=== PATIENT | male | born 1950 | race Caucasian/White ===

== ENCOUNTER 2016-05-03 10:18 | Inpatient (IN) | payer OTHER ==
[~2016-05-03] VITALS: Ht 167.6 cm; Wt 122.4 kg
[~2016-05-03 10:18] MED LIST: ASPIRIN EC325 MG PO; BACTRIM,SEPT1 TABLET PO; CARDIZEM CD120 M1 PO; CLEOCIN300 MG PO; CLINDAMYCIN HC300 MG PO; ENDOCET 5-3251 EACH PO; GABAPENTIN300 MG PO; GEODON20 MG PO; GEODON80 MG PO; Geodon PO; K-DUR20 MEQ PO; KEFLEX500 MG PO; KLOR-CON M2020 MEQ PO; LASIX20 MG PO; LEXAPRO10 MG PO; MAXZIDE 37.5 M1 EACH PO; OMEPRAZOLE40 M1 PO; PT UNSURE OF MEDS; TRIAMTERENE-HC1 EAC1 PO; Zeasorb Antifungal Treatment,Mitrazol Powder TP
[2016-05-03 11:37] LABS: HEMATOCRIT 31.3 % (38.0-50.0); MCH 24.9 PG (29.0-34.0); MCHC 32.6 G/DL (30.0-36.0); MCV 76.3 FL (86-99); MEAN PLAT.VOLUME 9.8 uM^3 (9.0-12.4); PLATELET COUNT 271 K/uL (156-360); RBC DIS.WIDTH-CV 16.4 % (11.8-14.6); RBC DIS.WIDTH-SD 43.8 % (39-53); WHITE BLOOD COUNT 14.7 K/uL (4.1-10.2)
[2016-05-03 11:42] LABS: EOSINOPHIL (%) 0.3 % (0-5); IMMATURE GRANULOCYTE (%) 0.3 % (0.0-0.7); IMMATURE GRANULOCYTE COUNT 0.5 K/uL; LYMPHOCYTE COUNT 0.8 K/uL (1.0-2.8); MONOCYTE (%) 8.6 % (3-12); MONOCYTE COUNT 1.3 K/uL (0-0.8); NEUTROPHIL (%) 85.3 % (45-76); NEUTROPHIL COUNT 12.5 K/uL (1.8-6.4)
[2016-05-03 11:48] LABS: CHLORIDE 95 mEq/L (99-109); POTASSIUM 3.1 mEq/L (3.7-5.4); SODIUM 134 mEq/L (136-147)
[2016-05-03 11:49] LABS: GLUCOSE 125 mg/dL (70-99)
[2016-05-03 11:51] LABS: ANION GAP 13 MEQ/L (2-14)
[2016-05-03 11:53] LABS: GFR ESTIMATE (CALCULATED) > 59 mL/min/
[2016-05-03 11:54] LABS: UREA NITROGEN (BUN) 12 mg/dL (9-23)
[2016-05-03] MEDS ORDERED: K-DUR20 MEQ PO (15:26)
[2016-05-03] MEDS ORDERED: ASPIRIN325 MG PO (15:27)
[2016-05-03] MEDS ORDERED: CARDIZEM CD,CA120 MG PO (15:27)
[2016-05-03] MEDS ORDERED: LASIX40 MG PO (15:28)
[2016-05-03] MEDS ORDERED: TRAMADOL HCL50 MG PO (15:28)
[2016-05-03 17:19] LABS: TROP-I INTERPRETATION NEGATIVE; TROPONIN-I 0.01 ng/mL (0.0-0.30)
[2016-05-03 20:44] LABS: CHLORIDE 95 mEq/L (99-109); POTASSIUM 3.4 mEq/L (3.7-5.4); SODIUM 132 mEq/L (136-147)
[2016-05-03 20:45] LABS: GLUCOSE 128 mg/dL (70-99)
[2016-05-03 20:47] LABS: ANION GAP 9 MEQ/L (2-14)
[2016-05-03 20:49] LABS: GFR ESTIMATE (CALCULATED) > 59 mL/min/
[2016-05-03 20:50] LABS: UREA NITROGEN (BUN) 12 mg/dL (9-23)
[2016-05-03 21:00] VITALS: BP 152/81
[2016-05-04 00:23] VITALS: BP 110/54
[2016-05-04 07:08] LABS: HEMATOCRIT 26.8 % (38.0-50.0); MCH 24.6 PG (29.0-34.0); MCHC 32.1 G/DL (30.0-36.0); MCV 76.8 FL (86-99); MEAN PLAT.VOLUME 9.6 uM^3 (9.0-12.4); PLATELET COUNT 268 K/uL (156-360); RBC DIS.WIDTH-CV 16.4 % (11.8-14.6); RBC DIS.WIDTH-SD 45.5 % (39-53); RED BLOOD COUNT 3.49 M/uL (4.00-5.50); WHITE BLOOD COUNT 12.9 K/uL (4.1-10.2)
[2016-05-04 07:32] LABS: ANION GAP 9 MEQ/L (2-14); CHLORIDE 97 MEQ/L (99-109); GFR ESTIMATE (CALCULATED) > 59 mL/min/; GLUCOSE 96 mg/dL (70-99); POTASSIUM 3.5 MEQ/L (3.7-5.4); SAMPLE HEMOLYSIS CHECK 0; SAMPLE ICTERIC CHECK 0; SAMPLE LIPEMIA CHECK 0; SODIUM 133 MEQ/L (136-147); UREA NITROGEN (BUN) 11 mg/dL (9-23)
[2016-05-04 08:10] VITALS: BP 105/60
[2016-05-04 12:00] VITALS: BP 116/51
[2016-05-04 15:45] VITALS: BP 127/68
[2016-05-04 19:20] VITALS: BP 126/79
[2016-05-05] VITALS (8 sets, daily range): BP systolic 114–143; BP diastolic 62–88
[2016-05-05 07:17] LABS: HEMATOCRIT 25.6 % (38.0-50.0); MCH 24.3 PG (29.0-34.0); MCHC 31.6 G/DL (30.0-36.0); MCV 76.9 FL (86-99); MEAN PLAT.VOLUME 9.8 uM^3 (9.0-12.4); PLATELET COUNT 295 K/uL (156-360); RBC DIS.WIDTH-CV 16.5 % (11.8-14.6); RBC DIS.WIDTH-SD 46.1 % (39-53); RED BLOOD COUNT 3.33 M/uL (4.00-5.50)
[2016-05-05 07:19] LABS: WHITE BLOOD COUNT 7.6 K/uL (4.1-10.2)
[2016-05-05 07:24] LABS: ANION GAP 8 MEQ/L (2-14); CHLORIDE 100 MEQ/L (99-109); GFR ESTIMATE (CALCULATED) > 59 mL/min/; GLUCOSE 101 mg/dL (70-99); POTASSIUM 4.1 MEQ/L (3.7-5.4); SAMPLE HEMOLYSIS CHECK 0; SAMPLE ICTERIC CHECK 0; SAMPLE LIPEMIA CHECK 0; SODIUM 135 MEQ/L (136-147); UREA NITROGEN (BUN) 10 mg/dL (9-23)
[2016-05-06 03:47] VITALS: BP 138/77
[2016-05-06 08:16] VITALS: BP 137/65
[2016-05-06 11:34] VITALS: BP 137/65
[2016-05-06 16:48] VITALS: BP 147/74
[2016-05-06 19:26] VITALS: BP 130/77
[2016-05-06 22:32] VITALS: BP 115/56
[2016-05-07 04:51] VITALS: BP 129/86
[2016-05-07 06:24] LABS: EOSINOPHIL (%) 5.5 % (0-5); EOSINOPHIL COUNT 0.6 K/uL (0-0.3); HEMATOCRIT 27.2 % (38.0-50.0); IMMATURE GRANULOCYTE (%) 0.9 % (0.0-0.7); IMMATURE GRANULOCYTE COUNT 0.1 K/uL; LYMPHOCYTE COUNT 1.1 K/uL (1.0-2.8); MCH 24.9 PG (29.0-34.0); MCV 77.9 FL (86-99); MEAN PLAT.VOLUME 9.6 uM^3 (9.0-12.4); MONOCYTE (%) 7.9 % (3-12); MONOCYTE COUNT 0.8 K/uL (0-0.8); NEUTROPHIL (%) 74.6 % (45-76); NEUTROPHIL COUNT 7.5 K/uL (1.8-6.4); PLATELET COUNT 371 K/uL (156-360); RBC DIS.WIDTH-CV 16.8 % (11.8-14.6); RED BLOOD COUNT 3.49 M/uL (4.00-5.50)
[2016-05-07 06:27] LABS: IRON 33 MCG/DL (35-150)
[2016-05-07 06:34] LABS: WHITE BLOOD COUNT 10.1 K/uL (4.1-10.2)
[2016-05-07 08:33] VITALS: BP 124/65
[2016-05-07 11:34] VITALS: BP 127/78
[2016-05-07 17:04] VITALS: BP 133/74
[2016-05-07 20:32] VITALS: BP 105/59
[2016-05-07 23:29] VITALS: BP 147/70
[2016-05-08 03:35] VITALS: BP 88/54
[2016-05-08 07:42] VITALS: BP 135/69
[2016-05-08] MEDS ORDERED: ELIQUIS5 MG PO (10:38)
[2016-05-08] MEDS ORDERED: METRONIDAZOLE500 MG PO (10:38)
[2016-05-08] MEDS ORDERED: ACIDOPHILUS LA1 EACH PO (10:39)
[2016-05-08] MEDS ORDERED: KEFLEX500 MG PO (10:40)
[2016-05-08] MEDS ORDERED: SSD25GM TP (10:40)
[2016-05-08] MEDS ORDERED: OXYCODONE HCL5 MG PO (10:41)
[2016-05-08 11:57] VITALS: BP 136/74
== END 2016-05-08 15:22 | DRG 571 ==
LOC: EME → EDBD 10:18 → EME 10:18 → 4EAST 12:49 → EDOF 12:49 → 4EAST 21:31 → 5EAST 05-05 21:59
PROVIDERS: Emergency Medicine; Hospitalist; Internal Medicine; Internal Medicine Cardiovascular Disease
PROC: 0JBQ0ZZ Excision of Right Foot Subcutaneous Tissue and Fascia, Open Approach (ICD-10-PCS; principal; 2016-05-04)
DX: L03.115 Cellulitis of right lower limb (principal); L03.116 Cellulitis of left lower limb; I83.218 Varicose veins of right lower extremity with both ulcer of other part of lower extremity and inflammation; I83.228 Varicose veins of left lower extremity with both ulcer of other part of lower extremity and inflammation; L97.211 Non-pressure chronic ulcer of right calf limited to breakdown of skin; L97.221 Non-pressure chronic ulcer of left calf limited to breakdown of skin; L97.411 Non-pressure chronic ulcer of right heel and midfoot limited to breakdown of skin; L97.511 Non-pressure chronic ulcer of other part of right foot limited to breakdown of skin; B95.4 Other streptococcus as the cause of diseases classified elsewhere; E66.9 Obesity, unspecified; Z68.41 Body mass index [BMI] 40.0-44.9, adult; I11.0 Hypertensive heart disease with heart failure; I50.30 Unspecified diastolic (congestive) heart failure; E87.6 Hypokalemia; D63.8 Anemia in other chronic diseases classified elsewhere; I48.0 Paroxysmal atrial fibrillation; F10.20 Alcohol dependence, uncomplicated; G62.9 Polyneuropathy, unspecified; F20.9 Schizophrenia, unspecified; F31.9 Bipolar disorder, unspecified; I73.9 Peripheral vascular disease, unspecified; Z91.19 Patient's noncompliance with other medical treatment and regimen; I89.0 Lymphedema, not elsewhere classified
CPT/HCPCS: 80048; 80048 91; 80202; 82607; 82746; 83540; 83880; 84466; 84484; 85025; 85027; 87040; 87070; 87075; 87076; 87077; 87186; 87205; 93005; 93306; 93970; 97530 GP; 99281; 99285; J0692; J0696; J1160; J1650; J3370; J7030; J7050

== ENCOUNTER 2017-06-06 16:09 | Emergency (ER) | payer OTHER ==
[~2017-06-06] VITALS: Ht 170.2 cm; Wt 102.1 kg
[~2017-06-06 16:09] MED LIST changes: +ACIDOPHILUS LA1 EACH PO; +ASPIRIN325 MG PO; +CARDIZEM CD,CA120 MG PO; +ELIQUIS5 MG PO; +LASIX40 MG PO; +METRONIDAZOLE500 MG PO; +OXYCODONE HCL5 MG PO; +SSD25GM TP; +TRAMADOL HCL50 MG PO
[2017-06-06] MEDS ORDERED: ULTRAM50 MG PO (17:46)
[2017-06-06 18:14] VITALS: BP 131/89
== END 2017-06-06 18:26 | disposition home or self-care (01) ==
LOC: EME 16:09
DX: S00.81XA Abrasion of other part of head, initial encounter (principal); S00.83XA Contusion of other part of head, initial encounter; S16.1XXA Strain of muscle, fascia and tendon at neck level, initial encounter; W01.198A Fall on same level from slipping, tripping and stumbling with subsequent striking against other object, initial encounter; Y92.002 Bathroom of unspecified non-institutional (private) residence as the place of occurrence of the external cause; I10 Essential (primary) hypertension; F31.9 Bipolar disorder, unspecified; F32.9 Major depressive disorder, single episode, unspecified; R56.9 Unspecified convulsions; Z88.0 Allergy status to penicillin
CPT/HCPCS: 70450; 72125; 99281; 99285